=== PATIENT | male | born 1975 | race Hispanic/Latino ===

== ENCOUNTER 2018-06-16 21:29 | Emergency (ER) | payer MEDICARE ==
[2018-06-16] MEDS ORDERED: DEXAMETHASONE SOD PHOSPHATE 10MG/ML 1ML VIAL ONE (22:10)
[2018-06-16] MEDS ORDERED: KETOROLAC TROMETHAMINE 60 MG/2 ML VIAL ONE (22:11)
== END 2018-06-16 22:56 | disposition home or self-care (01) ==
LOC: EDH 21:29
DX: M62.830 Muscle spasm of back (principal); M54.5 Low back pain; Z98.890 Other specified postprocedural states
CPT/HCPCS: 96372 ×2; 99283; J1100; J1885

== ENCOUNTER 2020-05-13 21:35 | Emergency (ER) | payer MEDICARE ==
[~2020-05-13 21:35] MED LIST: AMLO5TAB4 PO; DOXY100T2 PO; HYDR25 PO; OSEL75 PO; PRED20TA3 PO
[2020-05-13] MEDS ORDERED: CLINDAMYCIN 600 MG/D5% WATER 50 ML IV ONE (22:54)
[2020-05-13] MEDS ORDERED: KETOROLAC TROMETHAMINE 30MG/ML ONE (22:54)
[2020-05-13 22:56] LABS: BASOPHILS % (AUTO) 0.6 % (0.0-5.0); EOSINOPHILS % (AUTO) 1.7 % (0.0-8.0); HEMATOCRIT 42.4 % (42-54); LYMPHOCYTES % (AUTO) 22.4 % (21.0-51.0); MEAN CORPUSCULAR HEMOGLOBIN 30.8 pg (27.0-33.0); MEAN CORPUSCULAR HGB CONC 33.7 g/dL (32.0-36.0); MEAN CORPUSCULAR VOLUME 91.2 fL (79-99); MONOCYTES % (AUTO) 8.5 % (3.0-13.0); NEUTROPHILS % (AUTO) 66.5 % (40.0-77.0); PLATELET COUNT (AUTO) 239 K/uL (130-400); RED BLOOD CELL COUNT(AUTO) 4.65 MIL/uL (4.50-6.20); RED CELL DISTRIBUTION WIDTH 12.7 % (11.0-15.5); WHITE BLOOD COUNT (AUTO) 9.9 K/uL (4.8-10.8)
[2020-05-13 23:00] LABS: CREATININE 0.8 mg/dL (0.5-1.5); POTASSIUM 4.1 mmol/L (3.5-5.1)
[2020-05-13 23:05] LABS: ALBUMIN 3.8 g/dL (3.5-5.0); BILIRUBIN,TOTAL 0.3 mg/dL (0.2-1.0); TOTAL PROTEIN, SERUM 7.7 g/dL (6.0-8.3)
== END 2020-05-14 03:38 | disposition home or self-care (01) ==
LOC: EDH 21:35
DX: L02.214 Cutaneous abscess of groin (principal); I10 Essential (primary) hypertension; E11.9 Type 2 diabetes mellitus without complications
CPT/HCPCS: 36415; 74176; 80053; 85025; 87070; 87076; 87077 ×2; 87186 ×2; 96365; 96366; 96372; 99285; J1885; J3490

== ENCOUNTER 2021-02-10 09:11 | Emergency (ER) | payer MEDICARE ==
[~2021-02-10] VITALS: Ht 182.9 cm; Wt 122.5 kg
[2021-02-10] MEDS ORDERED: PANTOPRAZOLE 40 MG/VIAL ONE (09:18)
[2021-02-10] MEDS ORDERED: 0.9%NACL 1000ML 1,000 ML IV ONE (09:18)
[2021-02-10] MEDS ORDERED: ASPIRIN 81MG CHEW TAB PO ONE (09:30)
[2021-02-10] MEDS ORDERED: ONDANSETRON 4MG INJ IVP ONE (09:30)
[2021-02-10 09:48] LABS: BASOPHILS % (AUTO) 1.1 % (0.0-5.0); EOSINOPHILS % (AUTO) 1.1 % (0.0-8.0); HEMATOCRIT 45.5 % (42-54); LYMPHOCYTES % (AUTO) 22.6 % (21.0-51.0); MEAN CORPUSCULAR HEMOGLOBIN 30.3 pg (27.0-33.0); MEAN CORPUSCULAR HGB CONC 33.8 g/dL (32.0-36.0); MEAN CORPUSCULAR VOLUME 89.6 fL (79-99); MONOCYTES % (AUTO) 6.6 % (3.0-13.0); NEUTROPHILS % (AUTO) 68.2 % (40.0-77.0); PLATELET COUNT (AUTO) 262 K/uL (130-400); RED BLOOD CELL COUNT(AUTO) 5.08 MIL/uL (4.50-6.20); WHITE BLOOD COUNT (AUTO) 7.5 K/uL (4.8-10.8)
[2021-02-10 10:03] LABS: APPEARANCE,URINE Clear (CLEAR); BILIRUBIN,URINE Negative (NEGATIVE); COLOR,URINE Yellow (YELLOW); GLUCOSE, URINE (UA) 250 mg/dL (NEGATIVE); KETONES,URINE 15 mg/dL (NEGATIVE); LEUKOCYTE ESTERASE ,URINE Negative (NEGATIVE); NITRATE,URINE Negative (NEGATIVE); OCCULT BLOOD,URINE Negative (NEGATIVE); PH,URINE 5.5 (5.0-8.0); PROTEIN,URINE Negative (NEGATIVE); UROBILINOGEN,URINE 0.2 mg/dL (0.2-1.0)
[2021-02-10 10:06] LABS: INR 1.01 (0.85-1.15)
[2021-02-10 10:07] LABS: PARTIAL THROMBOPLASTIN TIME 26.6 SEC (26.3-35.5)
[2021-02-10 10:14] LABS: ALBUMIN 4.6 g/dL (3.5-5.0); BILIRUBIN,TOTAL 0.4 mg/dL (0.2-1.0); MAGNESIUM 1.8 mg/dL (1.80-2.40); TOTAL PROTEIN, SERUM 8.4 g/dL (6.0-8.3)
[2021-02-10 10:21] LABS: BACTERIA,URINE Rare /HPF (None Seen); RBC,URINE 0-1 /HPF (0-1); SQUAMOUS EPITHELIAL CELL,UR Rare /HPF (0-2); WBC,URINE 0-1 /HPF (0-1)
[2021-02-10 10:42] LABS: B-TYPE NATRIURETIC PEPTIDE 6 pg/mL (0-100)
[2021-02-10] MEDS ORDERED: POTASSIUM BICARB/CIT AC 25 MEQ TABLET.EFF ONE (10:59)
[2021-02-10] MEDS ORDERED: POTASSIUM BICARB/CIT AC 25 MEQ TABLET.EFF PO ONE (11:00)
[2021-02-10 11:05] LABS: AMPHET/METH SCREEN,URINE NEGATIVE (NEGATIVE); BARBITURATE SCREEN, URINE NEGATIVE (NEGATIVE); BENZODIAZEPINES SCREEN,URINE NEGATIVE (NEGATIVE); CANNABINOID SCREEN,URINE POSITIVE (NEGATIVE); COCAINE SCREEN,URINE NEGATIVE (NEGATIVE); OPIATE SCREEN,URINE NEGATIVE (NEGATIVE); PHENCYCLIDINE SCREEN,URINE NEGATIVE (NEGATIVE)
[2021-02-10] MEDS ORDERED: FAMO20TA8 PO (11:13)
[2021-02-10] MEDS ORDERED: PANTOPRAZOLE 40 MG/VIAL IVP SCH (11:30)
[2021-02-10 12:41] VITALS: BP 145/85
== END 2021-02-10 11:26 | disposition home or self-care (01) ==
LOC: EDH 09:11
DX: K29.70 Gastritis, unspecified, without bleeding (principal); K21.9 Gastro-esophageal reflux disease without esophagitis; E87.6 Hypokalemia; Z79.52 Long term (current) use of systemic steroids; Z79.899 Other long term (current) drug therapy
CPT/HCPCS: 36415; 71045; 80053; 80305; 81001; 82550; 83690; 83735; 83874; 83880; 84484; 85025; 85610; 85730; 93005; 96374; 99285; C9113; J7030

== ENCOUNTER 2021-09-23 12:57 | Emergency (ER) | payer MEDICARE ==
[~2021-09-23] VITALS: Ht 182.9 cm; Wt 121.1 kg
[~2021-09-23 12:57] MED LIST changes: +FAMO20TA8 PO
[2021-09-23 13:12] VITALS: BP 121/80
[2021-09-23] MEDS ORDERED: CYCLOBENZAPRINE HCL 10 MG TABLET PO ONE (14:00)
[2021-09-23] MEDS ORDERED: KETOROLAC 60 MG VIAL (30MG/ML) IM ONE (14:00)
[2021-09-23 14:07] LABS: BASOPHILS % (AUTO) 0.6 % (0.0-5.0); EOSINOPHILS % (AUTO) 1.2 % (0.0-8.0); LYMPHOCYTES % (AUTO) 18.2 % (21.0-51.0); MEAN CORPUSCULAR HEMOGLOBIN 30.9 pg (27.0-33.0); MEAN CORPUSCULAR HGB CONC 33.6 g/dL (32.0-36.0); MEAN CORPUSCULAR VOLUME 92.1 fL (79-99); MONOCYTES % (AUTO) 7.2 % (3.0-13.0); NEUTROPHILS % (AUTO) 72.4 % (40.0-77.0); PLATELET COUNT (AUTO) 216 K/uL (130-400); RED BLOOD CELL COUNT(AUTO) 4.56 MIL/uL (4.50-6.20); RED CELL DISTRIBUTION WIDTH 13.1 % (11.0-15.5); WHITE BLOOD COUNT (AUTO) 9.5 K/uL (4.8-10.8)
[2021-09-23 14:20] LABS: CREATININE 0.7 mg/dL (0.5-1.5); POTASSIUM 4.6 mmol/L (3.5-5.1)
[2021-09-23 14:27] LABS: ALBUMIN 4.1 g/dL (3.5-5.0); TOTAL PROTEIN, SERUM 7.6 g/dL (6.0-8.3)
[2021-09-23] MEDS ORDERED: MECL-226 PO (15:05)
[2021-09-23] MEDS ORDERED: CYCL10TA16 PO (15:05)
[2021-09-23] MEDS ORDERED: NAPR-1180 PO (15:05)
== END 2021-09-23 15:15 | disposition home or self-care (01) ==
LOC: EDH 12:57
DX: S09.90XA Unspecified injury of head, initial encounter (principal); F07.81 Postconcussional syndrome; E66.9 Obesity, unspecified; Z68.36 Body mass index [BMI] 36.0-36.9, adult; Z79.899 Other long term (current) drug therapy; W19.XXXA Unspecified fall, initial encounter; Y93.89 Activity, other specified; Y92.89 Other specified places as the place of occurrence of the external cause; Y99.8 Other external cause status
CPT/HCPCS: 99284; 70450; 84484; 80053; 85025; 36415; 72125; 96372; J1885